=== PATIENT | male | born 1985 | race Caucasian/White ===

== ENCOUNTER 2017-07-20 10:51 | Emergency (ER) | payer OTHER ==
[~2017-07-20] VITALS: Ht 170.2 cm; Wt 59.0 kg
[2017-07-20 11:10] VITALS: BP 133/88; PULSE 75; RESP 16; TEMP 98.6; O2SAT 100
[2017-07-20 12:08] LABS: AUTOMATED NEUTROPHIL # 3.4 TH/MM3 (1.8-7.7); BASOPHIL % 0.8 % (0.0-2.0); EOSINOPHIL # 0.1 TH/MM3 (0-0.4); EOSINOPHIL % 1.3 % (0.0-4.0); HEMATOCRIT 36.9 % (39.0-51.0); HEMO FLAGS DIFF FINAL; LYMPH % 27.1 % (9.0-44.0); LYMPHOCYTE # 1.4 TH/MM3 (1.0-4.8); MEAN CELL VOLUME 89.3 FL (80.0-100.0); MEAN CORPUSCULAR HEMOGLOBIN 29.5 PG (27.0-34.0); MONO % 6.5 % (0.0-8.0); NEUT % 64.3 % (16.0-70.0); PLATELET COUNT 306 TH/MM3 (150-450); RED BLOOD COUNT 4.13 MIL/MM3 (4.50-5.90); RED CELL DISTRIBUTION WIDTH 13.8 % (11.6-17.2); WHITE BLOOD COUNT 5.3 TH/MM3 (4.0-11.0)
--- NOTE | 2017-07-20 12:11 | PD ---
HPI Chief Complaint: Psychiatric Symptoms Time Seen by Provider: 11:35 Travel History International Travel<30 days: No Contact w/Intl Traveler<30days: No Traveled to known affect area: No History of Present Illness HPI 32 year-old female presents to the emergency room under titus act initiated by police. Per report, patient was found wandering down the road barefoot in the rain with her 7-year-old son who was also barefoot. When the police approached her she could not give them appropriate answers. Her son was placed in protective custody and she was placed under Titus act. No suicidal or homicidal ideations. Patient denies hallucinations or delusions. Patient denies any chronic medical conditions or daily medications. Denies medical complaints at this time. States she smokes crystal meth, last used 2 days ago. Remote history of IV opiate use. Denies alcohol or cigarette use. PFSH Past Medical History Diminished Hearing: No Medical other: Yes (DRUG ADDICTION- METH ) Immunizations Current: Yes Tetanus Vaccination: Unknown Influenza Vaccination: No ?: Not LMP: last month : 3 Para: 2 Miscarriage: 0 : 1 Past Surgical History Surgical History: No Previous Surgery Social History Alcohol Use: No Tobacco Use: No Substance Use: Yes (meth last use more than 24 hours ago ) Review of Systems Except as stated in HPI: all other systems reviewed are Neg Physical Exam Narrative GENERAL: Well-nourished, well-developed female in no acute distress. Afebrile. Ambulatory. SKIN: Focused skin assessment warm/dry. HEAD: Normocephalic. EYES: No scleral icterus. No injection or drainage. NECK: Supple, trachea midline. No JVD or lymphadenopathy. CARDIOVASCULAR: Regular rate and rhythm without murmurs, gallops, or rubs. RESPIRATORY: Breath sounds equal bilaterally. No accessory muscle use. PSYCHIATRIC: No delusional thought processes. No hallucinations. Mildly tearful. Depressed mood. Normal affect. Data Data Last Documented VS Vital Signs Date Time Temp Pulse Resp B/P (MAP) Pulse Ox O2 Delivery O2 Flow Rate FiO2 07/20/17 11:10 98.6 75 16 133/88 (103) 100 Orders Orders Complete Blood Count With Diff (07/20/17 11:46) Basic Metabolic Panel (Bmp) (07/20/17 11:46) Ed Urine Pregnancytest Poc (07/20/17 11:46) Psych Screen (07/20/17 11:46) Drug Screen, Random Urine (07/20/17 11:46) Alcohol (Ethanol) (07/20/17 11:46) Diet Regular Basic (07/20/17 Lunch) Labs Laboratory Tests Test 07/20/17 11:10 07/20/17 11:45 White Blood Count 5.3 TH/MM3 Red Blood Count 4.13 MIL/MM3 Hemoglobin 12.2 GM/DL Hematocrit 36.9 % Mean Corpuscular Volume 89.3 FL Mean Corpuscular Hemoglobin 29.5 PG Mean Corpuscular Hemoglobin Concent 33.0 % Red Cell Distribution Width 13.8 % Platelet Count 306 TH/MM3 Mean Platelet Volume 8.3 FL Neutrophils (%) (Auto) 64.3 % Lymphocytes (%) (Auto) 27.1 % Monocytes (%) (Auto) 6.5 % Eosinophils (%) (Auto) 1.3 % Basophils (%) (Auto) 0.8 % Neutrophils # (Auto) 3.4 TH/MM3 Lymphocytes # (Auto) 1.4 TH/MM3 Monocytes # (Auto) 0.3 TH/MM3 Eosinophils # (Auto) 0.1 TH/MM3 Basophils # (Auto) 0.0 TH/MM3 CBC Comment DIFF FINAL Differential Comment Blood Urea Nitrogen 15 MG/DL Creatinine 0.76 MG/DL Random Glucose 94 MG/DL Calcium Level 8.8 MG/DL Sodium Level 139 MEQ/L Potassium Level 3.6 MEQ/L Chloride Level 104 MEQ/L Carbon Dioxide Level 26.8 MEQ/L Anion Gap 8 MEQ/L Estimat Glomerular Filtration Rate 120 ML/MIN Ethyl Alcohol Level 8 MG/DL Urine Opiates Screen NEG Urine Barbiturates Screen NEG Urine Amphetamines Screen POS Urine Benzodiazepines Screen NEG Urine Cocaine Screen NEG Urine Cannabinoids Screen NEG MDM Medical Decision Making Medical Screen Exam Complete: Yes Emergency Medical Condition: Yes Medical Record Reviewed: Yes Differential Diagnosis Depression, inappropriate Titus act, suicidal ideation, anxiety, drug use Narrative Course 32-year-old female presents to the emergency room under Titus act initiated by police department. Per report, patient was wandering down the road barefoot in the rain with her 7-year-old son who was also barefoot. Her son was taken into protective custody. Patient was reportedly incoherent and brought to the emergency room. In the emergency room she is cooperative and answering questions appropriately. Mildly decreased mood especially when speaking about her son. Denies suicidal or homicidal ideation. Resting comfortably. Denies medical complaints. Physical exam is unremarkable. Vital signs stable. CBC and BMP are unremarkable. Drug screen shows methamphetamine use. Minimal alcohol. Patient is medically cleared for psychiatric evaluation. Condition: Stable Karma Tran Jul 20, 2017 12:11
[2017-07-20 12:20] LABS: BICARBONATE 26.8 MEQ/L (21.0-32.0); POTASSIUM 3.6 MEQ/L (3.5-5.1)
--- NOTE | 2017-07-20 14:54 | PD ---
History of Present Illness Chief Complaint: Psychiatric Symptoms Time Seen by Provider: 14:30 Travel History International Travel<30 Days: No Contact w/Intl Traveler<30days: No Known affected area: No Legal Status Legal Status: Ariela Act History of Present Illness: 32-year-old female Ariela acted by law enforcement after being found walking in the rain with her 7-year-old son. Both individuals were barefoot. Patient could not provide law enforcement with appropriate answers to questions. Patient noted to be positive for amphetamines. She does have a history of using crystal meth and reports having done so in the last 2 days. Her 7-year- old son was taken into protective custody and the patient was Ariela acted here. At this time, the patient states she lives with her boyfriend in [place]. She states he does not have a phone and cannot call him. She would however like to go home. She denies any suicidal or homicidal ideation, plan or intent. She states the environmental health officer indicated to her that she could get her son back. PFSH Past Medical History Diminished Hearing: No Medical other: Yes (DRUG ADDICTION- METH ) Immunizations Current: Yes Tetanus Vaccination: Unknown Influenza Vaccination: No ?: Not LMP: last month : 3 Para: 2 Miscarriage: 0 : 1 Past Surgical History Surgical History: No Previous Surgery Psychiatric History Psychiatric History Hx Psychiatric Treatment: Denied History of Inpatient Treatment: No Guns or firearms in home: No Social History Hx Alcohol Use: No Hx Tobacco Use: No Hx Substance Use: Yes (meth last use more than 24 hours ago ) Hx of Substance Use Treatment: Yes Allergies-Medications (Allergen,Severity, Reaction): Coded Allergies: No Known Allergies (Unverified , 07/21/17) Per pt. Review of Systems Except as stated in HPI: all other systems reviewed are Neg Mental Status Examination Appearance: Appropriate, Disheveled Consciousness: Lethargic Orientation: Person, Place Motor Activity: Normal gait Speech: Hesitant, Slow Language: Adequate Fund of Knowledge: Adequate Attention and Concentration: Easily Distracted Memory: Unremarkable Mood: Sad Affect: Blunt Thought Process & Associations: Intact Thought Content: Appropriate Hallucination Type: None Delusion Type: None Suicidal Ideation: No Suicidal Plan: No Suicidal Intention: No Homicidal Ideation: No Homicidal Plan: No Homicidal Intention: No Insight: Adequate Judgment: Adequate MDM Medical Decision Making Medical Record Reviewed: Yes Assessment/Plan Patient interviewed at bedside, medical record reviewed and case discussed with nurse Souza. Nurse Libby wants to gather further information regarding the whereabouts of the patient's son. Patient continues to deny suicidal or homicidal ideation, plan or intent. She does appear to have slow mentation. She does continue to appear clinically intoxicated. Patient seen again on 2016. She is no longer intoxicated. She is calm, pleasant and cooperative. She is verbally owen for safety and she is competent to do so. She reports that she has family members who are willing to assist her. She understands that her son is in DCF custody. She is currently stating that she will stop using drugs. She was referred to [facility] by this physician. Orders Orders Complete Blood Count With Diff (07/20/17 11:46) Basic Metabolic Panel (Bmp) (07/20/17 11:46) Ed Urine Pregnancytest Poc (07/20/17 11:46) Psych Screen (07/20/17 11:46) Drug Screen, Random Urine (07/20/17 11:46) Alcohol (Ethanol) (07/20/17 11:46) Diet Regular Basic (07/20/17 Lunch) Results Vital Signs Date Time Temp Pulse Resp B/P (MAP) Pulse Ox O2 Delivery O2 Flow Rate FiO2 07/20/17 11:10 98.6 75 16 133/88 (103) 100 Laboratory Tests Test 07/20/17 11:10 07/20/17 11:45 White Blood Count 5.3 Red Blood Count 4.13 Hemoglobin 12.2 Hematocrit 36.9 Mean Corpuscular Volume 89.3 Mean Corpuscular Hemoglobin 29.5 Mean Corpuscular Hemoglobin Concent 33.0 Red Cell Distribution Width 13.8 Platelet Count 306 Mean Platelet Volume 8.3 Neutrophils (%) (Auto) 64.3 Lymphocytes (%) (Auto) 27.1 Monocytes (%) (Auto) 6.5 Eosinophils (%) (Auto) 1.3 Basophils (%) (Auto) 0.8 Neutrophils # (Auto) 3.4 Lymphocytes # (Auto) 1.4 Monocytes # (Auto) 0.3 Eosinophils # (Auto) 0.1 Basophils # (Auto) 0.0 CBC Comment DIFF FINAL Differential Comment Blood Urea Nitrogen 15 Creatinine 0.76 Random Glucose 94 Calcium Level 8.8 Sodium Level 139 Potassium Level 3.6 Chloride Level 104 Carbon Dioxide Level 26.8 Anion Gap 8 Estimat Glomerular Filtration Rate 120 Ethyl Alcohol Level 8 Urine Opiates Screen NEG Urine Barbiturates Screen NEG Urine Amphetamines Screen POS Urine Benzodiazepines Screen NEG Urine Cocaine Screen NEG Urine Cannabinoids Screen NEG Diagnosis Primary Impression: Amphetamine abuse Prescriptions No Active Prescriptions or Reported Meds Condition: Stable Fabian Ann MD Jul 20, 2017 14:54
[2017-07-20 17:50] VITALS: BP_SYST 101; BP_SYST 116; BP_DIAS 61; BP_DIAS 70; PULSE 76; PULSE 99; RESP 18; TEMP 98.3; O2SAT 100; O2SAT 99
[2017-07-21 06:44] VITALS: BP 115/56; PULSE 63; RESP 18; TEMP 99.3; O2SAT 100
[2017-07-21 16:27] VITALS: BP 97/53; PULSE 68; RESP 16
[2017-07-22 06:05] VITALS: BP 101/66; PULSE 69; O2SAT 100
[2017-07-22 10:58] VITALS: BP 97/55; PULSE 84; RESP 18; TEMP 98.4; O2SAT 100
[2017-07-22 14:19] VITALS: BP 97/55; TEMP 98.4
--- NOTE | 2017-07-22 14:45 | PD ---
Physical Exam Date Seen by Provider: Jul 22, 2017 Time Seen by Provider: 14:43 Data Data Last Documented VS Vital Signs Date Time Temp Pulse Resp B/P (MAP) Pulse Ox O2 Delivery O2 Flow Rate FiO2 07/22/17 14:19 98.4 84 18 97/55 (69) 100 07/22/17 10:58 Room Air Orders Orders Complete Blood Count With Diff (07/20/17 11:46) Basic Metabolic Panel (Bmp) (07/20/17 11:46) Ed Urine Pregnancytest Poc (07/20/17 11:46) Psych Screen (07/20/17 11:46) Drug Screen, Random Urine (07/20/17 11:46) Alcohol (Ethanol) (07/20/17 11:46) Diet Regular Basic (07/20/17 Lunch) Diet Regular Basic (07/21/17 Breakfast) Diet Regular Basic (07/21/17 Lunch) Diet Regular Basic (07/21/17 Dinner) Diet Regular Basic (07/22/17 Breakfast) Diet Regular Basic (07/22/17 Lunch) Ed Discharge Order (07/22/17 14:35) Labs Laboratory Tests Test 07/20/17 11:10 07/20/17 11:45 White Blood Count 5.3 TH/MM3 Red Blood Count 4.13 MIL/MM3 Hemoglobin 12.2 GM/DL Hematocrit 36.9 % Mean Corpuscular Volume 89.3 FL Mean Corpuscular Hemoglobin 29.5 PG Mean Corpuscular Hemoglobin Concent 33.0 % Red Cell Distribution Width 13.8 % Platelet Count 306 TH/MM3 Mean Platelet Volume 8.3 FL Neutrophils (%) (Auto) 64.3 % Lymphocytes (%) (Auto) 27.1 % Monocytes (%) (Auto) 6.5 % Eosinophils (%) (Auto) 1.3 % Basophils (%) (Auto) 0.8 % Neutrophils # (Auto) 3.4 TH/MM3 Lymphocytes # (Auto) 1.4 TH/MM3 Monocytes # (Auto) 0.3 TH/MM3 Eosinophils # (Auto) 0.1 TH/MM3 Basophils # (Auto) 0.0 TH/MM3 CBC Comment DIFF FINAL Differential Comment Blood Urea Nitrogen 15 MG/DL Creatinine 0.76 MG/DL Random Glucose 94 MG/DL Calcium Level 8.8 MG/DL Sodium Level 139 MEQ/L Potassium Level 3.6 MEQ/L Chloride Level 104 MEQ/L Carbon Dioxide Level 26.8 MEQ/L Anion Gap 8 MEQ/L Estimat Glomerular Filtration Rate 120 ML/MIN Ethyl Alcohol Level 8 MG/DL Urine Opiates Screen NEG Urine Barbiturates Screen NEG Urine Amphetamines Screen POS Urine Benzodiazepines Screen NEG Urine Cocaine Screen NEG Urine Cannabinoids Screen NEG MDM Medical Record Reviewed: Yes Supervised Visit with JAGJIT: No Narrative Course 32-year-old female presents to the emergency room under Titus act initiated by police after she was found wandering the streets in the rain, barefoot with her 7-year-old son. Patient could not answer questions so she was placed into protective custody and her son was placed in protective custody. She had admitted to recent methamphetamine use. She denies suicidal or homicidal ideation at this time. She was seen by the psychiatrist in Titus act was lifted , she is not felt to be a threat to herself or others. States she will do whatever it takes to get her son back. Patient is stable for outpatient follow- up and drug detoxification. Told to return for worsening symptoms. She understands and agrees to plan. Diagnosis Primary Impression: Amphetamine abuse Patient Instructions: General Instructions, Methamphetamine Abuse (ED) Departure Forms: Tests/Procedures Scripts No Active Prescriptions or Reported Meds Disposition: 01 DISCHARGE HOME Condition: Stable Karma Tran Jul 22, 2017 14:45
== END 2017-07-22 15:33 | disposition home or self-care (01) ==
LOC: NEPD 10:51 → NEPJ 07-22 15:33
DX: F15.10 Other stimulant abuse, uncomplicated (principal)
CPT/HCPCS: 80048; 80307; 84703; 85025; 99284

== ENCOUNTER 2017-09-03 17:56 | Emergency (ER) | payer OTHER ==
[~2017-09-03] VITALS: Ht 170.2 cm; Wt 56.8 kg
[2017-09-03 19:47] LABS: BACTERIA, URINE MOD /hpf; BILIRUBIN, URINE NEG (NEG); BLOOD, URINE MOD (NEG); GLUCOSE,URINE NEG (NEG); KETONE, URINE NEG (NEG); NITRITE,URINE NEG (NEG); PH, URINE 6.5 (5.0-8.5); SQUAMOUS EPITHELIAL CELL URINE 3 /hpf (0-5); URINE COLOR LIGHT-YELLOW (YELLW/STRAW); URINE LEUKOCYTE ESTERASE NEG (NEG)
[2017-09-04] MEDS ORDERED: BACT800T5 PO (00:18)
--- NOTE | 2017-09-04 00:19 | PD ---
HPI Chief Complaint: Abdominal Pain Time Seen by Provider: 22:59 Travel History International Travel<30 days: No Contact w/Intl Traveler<30days: No Traveled to known affect area: No History of Present Illness HPI Patient is a 32-year-old female who is sleeping in the stretcher. Triage note states she is here for urinary symptoms, however when woken up, she says she has no complaints. She does admit to using drugs in the past few days and not sleeping for 3 days. She has history of cocaine and amphetamine abuse. When awoken, she denies any urinary symptoms. She says she does not know why she is here. PFSH Past Medical History Depression: Yes Diminished Hearing: No Immunizations Current: Yes ?: Not : 3 Para: 2 Miscarriage: 0 : 1 Past Surgical History Surgical History: No Previous Surgery Social History Alcohol Use: No Tobacco Use: No Substance Use: Yes (injects/smokes Meth; last time "3 days ago, IV") Allergies-Medications (Allergen,Severity, Reaction): Coded Allergies: No Known Allergies (Unverified , 09/03/17) Per pt. Reported Meds & Prescriptions Reported Meds & Active Scripts Active No Active Prescriptions or Reported Medications Review of Systems Except as stated in HPI: all other systems reviewed are Neg General / Constitutional: No: Fever, Chills HENT: No: Headaches, Lightheadedness Cardiovascular: No: Chest Pain or Discomfort Respiratory: No: Shortness of Breath Gastrointestinal: No: Nausea, Vomiting, Abdominal Pain Genitourinary: No: Dysuria Musculoskeletal: No: Myalgias, Edema Skin: No Rash, No Change in Pigmentation Physical Exam Narrative GENERAL: Sleeping but awakens easily. SKIN: Focused skin assessment warm/dry. No signs of infection. HEAD: Atraumatic. Normocephalic. EYES: Pupils equal and round. No scleral icterus. ENT: Mucous membranes pink and moist. NECK: Trachea midline. No JVD. CARDIOVASCULAR: Regular rate and rhythm. No murmur appreciated. RESPIRATORY: No accessory muscle use. Clear to auscultation. Breath sounds equal bilaterally. GASTROINTESTINAL: Abdomen soft, non-tender, nondistended. MUSCULOSKELETAL: No obvious deformities. No clubbing. No cyanosis. No edema. NEUROLOGICAL: Awake and alert. No obvious cranial nerve deficits. Motor grossly within normal limits. Normal speech. PSYCHIATRIC: Appropriate mood and affect; insight and judgment normal. Data Data Orders Orders Ed Urine Pregnancytest Poc (09/03/17 18:22) Urinalysis - C+S If Indicated (09/03/17 18:22) Urine Culture (09/03/17 18:50) Labs Laboratory Tests Test 09/03/17 18:50 Urine Color LIGHT-YELLOW Urine Turbidity CLEAR Urine pH 6.5 Urine Specific [place] 1.010 Urine Protein NEG mg/dL Urine Glucose (UA) NEG mg/dL Urine Ketones NEG mg/dL Urine Occult Blood MOD Urine Nitrite NEG Urine Bilirubin NEG Urine Urobilinogen LESS THAN 2.0 MG/DL Urine Leukocyte Esterase NEG Urine RBC 149 /hpf Urine WBC 1 /hpf Urine Squamous Epithelial Cells 3 /hpf Urine Bacteria MOD /hpf Urine Yeast (Budding) RARE Microscopic Urinalysis Comment CULTURE INDICATED MDM Medical Decision Making Medical Screen Exam Complete: Yes Emergency Medical Condition: Yes Medical Record Reviewed: Yes Differential Diagnosis Intoxication versus withdrawal versus UTI Narrative Course Patient is a 32-year-old female who comes in originally complaining of abdominal pain. She is sleeping soundly in the emergency department. When awoken, she says that she was using drugs for the past 3 days and has not been sleeping. Currently she has no complaints. Urinalysis was performed and shows evidence of UTI. She'll be discharged with prescription for Bactrim. Advised to quit using drugs. Advised follow-up with her primary doctor. Advised to return to the ED as needed for any worsening symptoms. Diagnosis Primary Impression: UTI (urinary tract infection) Qualified Codes: N30.00 - Acute cystitis without hematuria Patient Instructions: General Instructions, Urinary Tract Infection in Women ( ED) Additional Instructions: Take all of your antibiotic. Stop using drugs. Return to the ED as needed for any worsening symptoms. Scripts Sulfamethoxazole-Trimethoprim (Bactrim DS) 800-160 Mg Tab 1 TAB PO BID for Infection, #6 TAB 0 Refills Prov: Geri Byrd MD 09/04/17 Disposition: 01 DISCHARGE HOME Condition: Stable Geri Byrd MD Sep 04, 2017 00:18
[2017-09-04 00:22] VITALS: BP 120/60; PULSE 88; RESP 20; TEMP 98.2; O2SAT 98
== END 2017-09-04 00:45 | disposition home or self-care (01) ==
LOC: EDSEX 17:56 → NEPD 17:56
DX: N30.00 Acute cystitis without hematuria (principal); B96.89 Other specified bacterial agents as the cause of diseases classified elsewhere; F14.10 Cocaine abuse, uncomplicated; F15.10 Other stimulant abuse, uncomplicated
CPT/HCPCS: 81001; 84703; 87086; 99283

== ENCOUNTER 2017-12-20 19:26 | Inpatient (IN) | payer OTHER ==
[~2017-12-20] VITALS: Ht 157.5 cm; Wt 69.0 kg
[~2017-12-20 19:26] MED LIST: BACT800T5 PO
[2017-12-20 20:24] VITALS: BP 135/83; PULSE 81; RESP 16; TEMP 99.4; O2SAT 100
--- NOTE | 2017-12-20 22:09 | PD ---
HPI Chief Complaint: Psychiatric Symptoms Time Seen by Provider: 22:08 Travel History International Travel<30 days: No Contact w/Intl Traveler<30days: No Traveled to known affect area: No History of Present Illness HPI 32-year-old female with history of polysubstance abuse presents to emergency department for psychiatric evaluation. Patient states that she was sober but had relapsed. She states she is very upset with herself and having very dark thoughts. She is depressed. Thinking about hurting herself. This is been worsening over the last week. She denies any medical needs she has no other symptoms to report. PFSH Past Medical History Depression: Yes Diminished Hearing: No Immunizations Current: Yes Tetanus Vaccination: Unknown Influenza Vaccination: No ?: Unknown : 3 Para: 2 Miscarriage: 0 : 1 Social History Alcohol Use: No Tobacco Use: No Substance Use: Yes (injects/smokes Meth; last time "3 days ago, IV") Allergies-Medications (Allergen,Severity, Reaction): Coded Allergies: No Known Allergies (Unverified , 12/20/17) Per pt. Reported Meds & Prescriptions Reported Meds & Active Scripts Active Bactrim DS (Sulfamethoxazole-Trimethoprim) 800-160 Mg Tab 1 Tab PO BID Review of Systems Except as stated in HPI: all other systems reviewed are Neg Physical Exam Narrative GENERAL: Well-nourished female patient, no acute distress. SKIN: Focused skin assessment warm/dry. HEAD: Atraumatic. Normocephalic. EYES: Pupils equal and round. No scleral icterus. No injection or drainage. ENT: No nasal bleeding or discharge. Mucous membranes pink and moist. NECK: Trachea midline. No JVD. CARDIOVASCULAR: Regular rate and rhythm. No murmur appreciated. RESPIRATORY: No accessory muscle use. Clear to auscultation. Breath sounds equal bilaterally. GASTROINTESTINAL: Abdomen soft, non-tender, nondistended. Hepatic and splenic margins not palpable. MUSCULOSKELETAL: No obvious deformities. No clubbing. No cyanosis. No edema. NEUROLOGICAL: Awake and alert. No obvious cranial nerve deficits. Motor grossly within normal limits. Normal speech. Data Data Last Documented VS Vital Signs Date Time Temp Pulse Resp B/P (MAP) Pulse Ox O2 Delivery O2 Flow Rate FiO2 12/20/17 20:24 99.4 81 16 135/83 (100) 100 Orders Orders Complete Blood Count With Diff (12/20/17 22:09) Thyroid Stimulating Hormone (12/20/17 22:09) Basic Metabolic Panel (Bmp) (12/20/17 22:09) Ed Urine Pregnancytest Poc (12/20/17 22:09) Psych Screen (12/20/17 22:09) Drug Screen, Random Urine (12/20/17 22:09) Alcohol (Ethanol) (12/20/17 22:09) Lorazepam Inj (Ativan Inj) (12/21/17 00:56) Labs Laboratory Tests Test 12/20/17 22:22 White Blood Count 9.4 TH/MM3 Red Blood Count 4.02 MIL/MM3 Hemoglobin 12.5 GM/DL Hematocrit 37.0 % Mean Corpuscular Volume 92.0 FL Mean Corpuscular Hemoglobin 31.1 PG Mean Corpuscular Hemoglobin Concent 33.9 % Red Cell Distribution Width 14.1 % Platelet Count 290 TH/MM3 Mean Platelet Volume 8.5 FL Neutrophils (%) (Auto) 72.8 % Lymphocytes (%) (Auto) 17.4 % Monocytes (%) (Auto) 8.6 % Eosinophils (%) (Auto) 0.8 % Basophils (%) (Auto) 0.4 % Neutrophils # (Auto) 6.8 TH/MM3 Lymphocytes # (Auto) 1.6 TH/MM3 Monocytes # (Auto) 0.8 TH/MM3 Eosinophils # (Auto) 0.1 TH/MM3 Basophils # (Auto) 0.0 TH/MM3 CBC Comment DIFF FINAL Differential Comment Blood Urea Nitrogen 8 MG/DL Creatinine 0.73 MG/DL Random Glucose 91 MG/DL Calcium Level 8.7 MG/DL Sodium Level 137 MEQ/L Potassium Level 3.7 MEQ/L Chloride Level 102 MEQ/L Carbon Dioxide Level 29.2 MEQ/L Anion Gap 6 MEQ/L Estimat Glomerular Filtration Rate 93 ML/MIN Thyroid Stimulating Hormone 3rd Gen 0.761 uIU/ML Urine Opiates Screen NEG Urine Barbiturates Screen NEG Urine Amphetamines Screen NEG Urine Benzodiazepines Screen NEG Urine Cocaine Screen NEG Urine Cannabinoids Screen NEG Ethyl Alcohol Level LESS THAN 3 MG/DL MDM Medical Decision Making Medical Screen Exam Complete: Yes Emergency Medical Condition: Yes Medical Record Reviewed: Yes Differential Diagnosis Mood disorder versus personality disorder versus adjustment reaction disorder versus substance abuse Narrative Course 32-year-old female presents emergency department for psychiatric evaluation. Patient appears without distress. Vital signs are stable. Lab work is reviewed and without acute concern. Patient is medically cleared to undergo psychiatric screening for further evaluation and disposition. Mental health screening discussed with the patient. Psychiatric screen ordered. Laboratory Tests Test 12/20/17 22:22 White Blood Count 9.4 TH/MM3 Red Blood Count 4.02 MIL/MM3 Hemoglobin 12.5 GM/DL Hematocrit 37.0 % Mean Corpuscular Volume 92.0 FL Mean Corpuscular Hemoglobin 31.1 PG Mean Corpuscular Hemoglobin Concent 33.9 % Red Cell Distribution Width 14.1 % Platelet Count 290 TH/MM3 Mean Platelet Volume 8.5 FL Neutrophils (%) (Auto) 72.8 % Lymphocytes (%) (Auto) 17.4 % Monocytes (%) (Auto) 8.6 % Eosinophils (%) (Auto) 0.8 % Basophils (%) (Auto) 0.4 % Neutrophils # (Auto) 6.8 TH/MM3 Lymphocytes # (Auto) 1.6 TH/MM3 Monocytes # (Auto) 0.8 TH/MM3 Eosinophils # (Auto) 0.1 TH/MM3 Basophils # (Auto) 0.0 TH/MM3 CBC Comment DIFF FINAL Differential Comment Blood Urea Nitrogen 8 MG/DL Creatinine 0.73 MG/DL Random Glucose 91 MG/DL Calcium Level 8.7 MG/DL Sodium Level 137 MEQ/L Potassium Level 3.7 MEQ/L Chloride Level 102 MEQ/L Carbon Dioxide Level 29.2 MEQ/L Anion Gap 6 MEQ/L Estimat Glomerular Filtration Rate 93 ML/MIN Thyroid Stimulating Hormone 3rd Gen 0.761 uIU/ML Urine Opiates Screen NEG Urine Barbiturates Screen NEG Urine Amphetamines Screen NEG Urine Benzodiazepines Screen NEG Urine Cocaine Screen NEG Urine Cannabinoids Screen NEG Ethyl Alcohol Level LESS THAN 3 MG/DL Diagnosis Primary Impression: Adjustment reaction Qualified Codes: F43.23 - Adjustment disorder with mixed anxiety and depressed mood Condition: Stable Joanna Mccarthy Dec 20, 2017 22:09
[2017-12-20 22:32] LABS: AUTOMATED NEUTROPHIL # 6.8 TH/MM3 (1.8-7.7); BASOPHIL % 0.4 % (0.0-2.0); EOSINOPHIL # 0.1 TH/MM3 (0-0.4); EOSINOPHIL % 0.8 % (0.0-4.0); HEMOGLOBIN 12.5 GM/DL (11.6-15.3); LYMPH % 17.4 % (9.0-44.0); LYMPHOCYTE # 1.6 TH/MM3 (1.0-4.8); MEAN CORPUSCULAR HEMOGLOBIN 31.1 PG (27.0-34.0); MEAN CORPUSCULAR HGB CONC 33.9 % (32.0-36.0); MEAN PLATELET VOLUME 8.5 FL (7.0-11.0); MONO % 8.6 % (0.0-8.0); MONOCYTE # 0.8 TH/MM3 (0-0.9); NEUT % 72.8 % (16.0-70.0); PLATELET COUNT 290 TH/MM3 (150-450); RED BLOOD COUNT 4.02 MIL/MM3 (4.00-5.30); RED CELL DISTRIBUTION WIDTH 14.1 % (11.6-17.2); WHITE BLOOD COUNT 9.4 TH/MM3 (4.0-11.0)
[2017-12-20 22:55] LABS: BICARBONATE 29.2 MEQ/L (21.0-32.0); CALCIUM 8.7 MG/DL (8.5-10.1); CHLORIDE 102 MEQ/L (98-107); CREATININE 0.73 MG/DL (0.50-1.00); GLOMERULAR FILTRATION RATE 93 ML/MIN (>89); GLUCOSE,RANDOM 91 MG/DL (74-106); SODIUM (NA) 137 MEQ/L (136-145)
[2017-12-20 23:02] LABS: BLOOD UREA NITROGEN 8 MG/DL (7-18)
[2017-12-21] MEDS ORDERED: LORazepam 2 MG/ML VIAL ONE (00:56)
[2017-12-21 06:24] VITALS: BP 146/68; PULSE 70; RESP 14; O2SAT 99
[2017-12-21] MEDS ORDERED: BENZTROPINE MESYLATE 2 MG/2 ML VIAL IM PRN (08:30)
[2017-12-21] MEDS ORDERED: ACETAMINOPHEN 325 MG TAB PO PRN (08:30)
[2017-12-21] MEDS ORDERED: BENZTROPINE MESYLATE 1 MG TAB PO PRN (08:30)
[2017-12-21] MEDS ORDERED: MAGNESIUM HYDROXIDE SUSP 30 ML CUP PO PRN (08:30)
[2017-12-21] MEDS ORDERED: ALUMINUM/MAGNESIUM/SIMETH 30 ML CUP PO PRN (08:30)
[2017-12-21] MEDS ORDERED: NICOTINE 21 MG/24 HR PATCH T-DERMAL PRN (08:30)
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
[2017-12-21] MEDS: FLUoxetine HCL 10 MG CAP PO SCH (10:49)
[2017-12-21 11:00] VITALS: BP 115/68; PULSE 88; RESP 16; TEMP 98.2; O2SAT 98
[2017-12-21] MEDS: traZODone HCL 50 MG TAB PO PRN (21:48)
[2017-12-22 05:53] VITALS: BP 105/58; PULSE 70; RESP 15; TEMP 98.1; O2SAT 98
[2017-12-22] MEDS: FLUoxetine HCL 10 MG CAP PO SCH (09:09)
[2017-12-22 09:22] LABS: CHOLESTEROL 169 MG/DL (120-200); TRIGLYCERIDES 133 MG/DL (42-150)
[2017-12-22 09:24] LABS: CHOLESTEROL/ HDL RATIO 2.93 RATIO; HDL CHOLESTEROL 57.6 MG/DL (40.0-60.0); LDL CHOLESTEROL 85 MG/DL (0-99)
--- NOTE | 2017-12-22 10:24 | HHI.PYPN ---
Subjective Remarks Reviewed electronic medical record and discussed case with staff. Follow-up was performed in patient's room with nurse present. Patient found sleeping soundly in her bed. She woke to verbal stimuli. She is alert and oriented 4. Patient reports that she slept well has a good appetite. She denies suicidal ideation but states "I have been sleeping all morning". She denies homicidal ideation, visual or auditory hallucinations. I can elicit no delusional material. She denies any side effects from medication and there is no psychomotor abnormality noted. She denies physical complaints at this time. Mental Status Examination Appearance: Appropriate Consciousness: Alert Orientation: x4 Motor Activity: Other (Sitting on bed) Speech: Unremarkable Language: Adequate Fund of Knowledge: Adequate Attention and Concentration: Adequate Memory: Unremarkable Mood: Appropriate Affect: Appropriate Thought Process & Associations: Intact Thought Content: Appropriate Hallucination Type: None Delusion Type: None Suicidal Ideation: No (Denies, but states "I have been sleeping".) Suicidal Plan: No Suicidal Intention: No Homicidal Ideation: No Homicidal Plan: No Homicidal Intention: No Insight: Fair Judgment: Impulsive Results Labs Test 12/22/17 07:34 Triglycerides Level 133 MG/DL Cholesterol Level 169 MG/DL LDL Cholesterol 85 MG/DL HDL Cholesterol 57.6 MG/DL Cholesterol/HDL Ratio 2.93 RATIO Vitals/IOs Vital Signs Date Time Temp Pulse Resp B/P (MAP) Pulse Ox O2 Delivery O2 Flow Rate FiO2 12/22/17 05:53 98.1 70 15 105/58 (74) 98 12/21/17 06:24 Room Air Assessment & Plan Problem List: (1) Adjustment reaction ICD Codes: F43.20 - Adjustment disorder, unspecified Status: Acute Assessment & Plan Estimated LOS: Patient continues to improve. Will continue with medication. Counselor working on possible placement. Justification for Cont. Inpt. Moving this patient to a lower level of care would likely result in decompensation. Safe discharge plan being worked upon. Problem Qualifiers (1) Adjustment reaction: Qualified Codes: F43.23 - Adjustment disorder with mixed anxiety and depressed mood Ute Easley Dec 22, 2017 10:24
[2017-12-22 13:16] LABS: HEMOGLOBIN A1C 5.5 % (4.3-6.0)
[2017-12-22 17:38] VITALS: BP 110/74; PULSE 82; RESP 16; TEMP 97.9; O2SAT 98
[2017-12-22] MEDS: traZODone HCL 50 MG TAB PO PRN (21:57)
[2017-12-23 05:43] VITALS: BP 96/54; PULSE 70; RESP 16; TEMP 98.2; O2SAT 97
[2017-12-23] MEDS: FLUoxetine HCL 10 MG CAP PO SCH (09:09)
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
[2017-12-23] MEDS: hydrOXYzine HCL 50 MG TAB PO PRN ×2 (15:03→22:22)
[2017-12-23 18:22] VITALS: BP 107/59; PULSE 72; RESP 17; TEMP 97.8; O2SAT 99
[2017-12-23] MEDS: traZODone HCL 50 MG TAB PO PRN (22:18)
[2017-12-24 06:24] VITALS: BP 104/60; PULSE 67; RESP 16; TEMP 98; O2SAT 98
--- NOTE | 2017-12-24 08:48 | HHI.PYPN ---
Subjective Remarks Patient seen and examined with nurse. Chart reviewed. Case discussed with nursing staff. On my examination today, patient reports that mood remains somewhat depressed but is improving. She continues to complain of low sense of self-worth. No SI/HI presently. We discuss traumatic nightmares and discuss possibility of addition of an agent (e.g. Prazosin) for the management of this issue. After a discussion of pharmacotherapeutic options, we settle on titration of Prozac at this time. Denies side effects from medications. No physical complaints. Review of Systems Except as stated in HPI: all other systems reviewed are Neg Mental Status Examination Appearance: Appropriate Consciousness: Alert Orientation: x4 Motor Activity: Other (No motor abnormalities noted) Speech: Unremarkable Language: Adequate Fund of Knowledge: Adequate Attention and Concentration: Adequate Memory: Unremarkable Mood: Appropriate (Mood is improving) Affect: Appropriate Thought Process & Associations: Intact Thought Content: Appropriate Hallucination Type: None Delusion Type: None Suicidal Ideation: No Suicidal Plan: No Suicidal Intention: No Homicidal Ideation: No Homicidal Plan: No Homicidal Intention: No Insight: Adequate Judgment: Adequate Results Labs Labs reviewed. No new labs. Vitals/IOs Vital Signs Date Time Temp Pulse Resp B/P (MAP) Pulse Ox O2 Delivery O2 Flow Rate FiO2 12/24/17 06:24 98.0 67 16 104/60 (75) 98 12/21/17 06:24 Room Air Intake and Output 12/24/17 12/24/17 12/25/17 08:00 16:00 00:00 Intake Total 240 ml Balance 240 ml Assessment & Plan Problem List: (1) Adjustment reaction ICD Codes: F43.20 - Adjustment disorder, unspecified Status: Acute Assessment & Plan Titrate Prozac to 20 mg daily. Continue to monitor on inpatient unit. Continue other medications and care as ordered. Justification for Cont. Inpt. Medication changes. Discharge Planning Patient is improving. Possible discharge in the next 1-2 days. Request HC Surrog/Guard Advoc?: No Problem Qualifiers (1) Adjustment reaction: Qualified Codes: F43.21 - Adjustment disorder with depressed mood Jonathan Arce MD Dec 24, 2017 08:48
[2017-12-24] MEDS: FLUoxetine HCL 10 MG CAP PO SCH (09:59)
[2017-12-24] MEDS: hydrOXYzine HCL 50 MG TAB PO PRN ×2 (15:21→21:22)
[2017-12-24 16:46] VITALS: BP 115/55; PULSE 98; RESP 18; TEMP 98.2; O2SAT 98
[2017-12-24] MEDS: traZODone HCL 50 MG TAB PO PRN (21:22)
[2017-12-25 06:00] VITALS: BP 95/51; PULSE 73; RESP 16; TEMP 98.1; O2SAT 97
[2017-12-25] MEDS: FLUoxetine HCL 10 MG CAP PO SCH (08:53)
[2017-12-25] MEDS ORDERED: TRAZ50TA12 PO (09:58)
[2017-12-25] MEDS ORDERED: PROZ20CA11 PO (09:58)
[2017-12-25] MEDS ORDERED: HYDR50TA94 PO (09:58)
--- NOTE | 2017-12-25 09:58 | HHI.DS ---
Psychiatry Discharge Summary Inpatient Psychiatric care?: Yes Advance Directive: No Reason Not Provided: NOT NEEDED Mental Health AdvanceDirective: No Health Care Proxy: No Admission Admission Date Dec 21, 2017 at 08:20 Admission Diagnosis: (1) Adjustment disorder with depressed mood ICD Code: F43.21 - Adjustment disorder with depressed mood (2) History of substance use disorder ICD Code: Z87.898 - Personal history of other specified conditions Brief History Ms. Bailon is a 32-year-old female with a reported history of substance use issues who presents on a voluntary basis requesting psychiatric evaluation. She told the ED provider that she was "very upset with herself and having very dark thoughts". Reviewing the electronic medical record, I note that the patient was seen in consultation by Dr. Ann in July 2017 with a diagnosis at that time of amphetamine abuse. The patient is seen and examined. Chart reviewed. Case discussed with staff in the ED. On my examination today, the patient reports that she has been feeling depressed for several months. She also has been feeling somewhat anxious. She says that these symptoms are related at least in part to difficulties with her son being under the care of DCF. She endorses some hopeless and worthless feelings. No sleep or appetite disturbance. Some focus/concentration difficulties. No hypomanic or manic symptoms presently nor can I elicit any history of same. She denies any audio or visual hallucinations. I can elicit no delusional beliefs. She endorses some vague suicidal ideation and says she was beginning to think that "dying is easier." She says that when she began contemplating suicide plans, she decided to come into the hospital. She does presently contract for safety on the inpatient unit. She denies any homicidal ideation. Remainder of the psychiatric ROS is negative. The patient has no acute physical complaints. Tobacco Use In Past 30 Days: No Tobacco Past 30 Days Alcohol Use: Never Hospital Course Patient was admitted to a locked, inpatient psychiatric unit. Appropriate precautions were in place throughout patient's hospital stay. Patient was seen and examined on the unit by psychiatry and also visited by counselor. Psychotropic medications were adjusted. Patient tolerated medication changes well without side effects. Patient had improvement in presenting psychiatric symptomatology during the course of her hospital stay. There was no evidence of any suicidality or homicidality on the inpatient unit. There was no evidence of self-care deficit. The patient remained in behavioral control and was compliant with medications. On the day of discharge: Patient seen and examined with nurse. Chart reviewed. Case discussed with nursing staff. No behavioral issues overnight. Case discussed in treatment team. On my examination today, the patient is requesting discharge from the inpatient psychiatric unit today so that she might enter into a chemical dependency treatment program suggested to her by the counselor. She denies any suicidal or homicidal ideation, intent or plan on direct questioning and contracts for safety. She reports that her mood is "good" and she endorses having positive thoughts. I can elicit no depressive or hypomanic/manic symptoms. She denies any nightmares overnight and slept fairly well. She denies any audiovisual hallucinations. I can elicit no delusional beliefs. There is no evidence of impairment in reality construction. She denies any side effects from medications. No physical complaints. Suicide and violence risk assessment on day of discharge both suggest lower imminent risk from mental illness, and the patient's level of function is adequate for outpatient care. Patient has maximized benefit from this inpatient psychiatric hospital stay. She does not meet criteria for involuntary psychiatric hospitalization and is requesting discharge from the inpatient psychiatric unit today. Patient will be discharged today with psychiatric follow-up as arranged by counselor. Patient is also to follow up with primary care. I have supported the patient in her desire for sobriety. I have counseled the patient regarding warning signs for need to return to the psychiatric emergency room as part of a general safety plan. Results Blood Pressure 95 / 51 Vital Signs Date Time Temp Pulse Resp B/P (MAP) Pulse Ox O2 Delivery O2 Flow Rate FiO2 12/25/17 06:00 98.1 73 16 95/51 (66) 97 Laboratory Results Test 12/22/17 07:34 Cholesterol Level 169 MG/DL (120-200) HDL Cholesterol 57.6 MG/DL (40.0-60.0) Hemoglobin A1c 5.5 % (4.3-6.0) LDL Cholesterol 85 MG/DL (0-99) Triglycerides Level 133 MG/DL (42-150) Summary of Procedures None done Imaging None done Pending results at discharge: No Medications # of Antipsychotic meds at D/C: 0 Approp Antipsych med options 1 - Minimum of three failed multiple trials of monotherapy. 2 - Documented plan to taper to monotherapy due to previous use of multiple meds OR cross-taper in progress at D/C. 3 - Documentation of augmentation of Clozapine. 4 - Justification other than those listed in allowable values 1-3, document here : Discharge Discharge Date: Dec 25, 2017 Discharge Diagnosis: (1) Adjustment disorder with depressed mood Diagnosis: Principal (resolved) ICD Code: F43.21 - Adjustment disorder with depressed mood (2) History of substance use disorder Diagnosis: Secondary ICD Code: Z87.898 - Personal history of other specified conditions Pt Condition on Discharge: Stable Discharge Disposition: Discharge Home Discharge Instructions Diet Instructions: As Tolerated, No Restrictions Activities you can perform: Weight Bearing as Ward Scheduled Appointment: As per counselors notes New Medications: Fluoxetine (Prozac) 20 Mg Cap 20 MG PO DAILY for Mental Health for 15 Days, #15 CAP 1 Refill Hydroxyzine HCl (Hydroxyzine HCl) 50 Mg Tab 50 MG PO Q6H PRN for ANXIETY, #15 TAB 1 Refill Trazodone (Trazodone) 50 Mg Tab 50 MG PO HS PRN for INSOMNIA for 15 Days, TAB 1 Refill Discontinued Medications: Sulfamethoxazole-Trimethoprim (Bactrim DS) 800-160 Mg Tab 1 TAB PO BID for Infection, #6 TAB 0 Refills Discharge Time <= 30 minutes Mental Status Examination Appearance: Appropriate Consciousness: Alert Orientation: x4 Motor Activity: Other (No abnormal motor movements noted) Speech: Unremarkable Language: Adequate Fund of Knowledge: Adequate Attention and Concentration: Adequate Memory: Unremarkable Mood: Appropriate, Good Affect: Appropriate, Euthymic Thought Process & Associations: Intact, Logical, Goal directed, Linear Thought Content: Appropriate Hallucination Type: None Delusion Type: None Suicidal Ideation: No Suicidal Plan: No Suicidal Intention: No Homicidal Ideation: No Homicidal Plan: No Homicidal Intention: No Insight: Adequate Judgment: Adequate Discharge/Advance Care Plan Health Problems: (1) Adjustment reaction Goals to promote your health * To prevent worsening of your condition and complications * To maintain your health at the optimal level Directions to meet your goals Take your medications as prescribed Follow your dietary instruction Follow activity as directed Keep your appointments as scheduled Take your immunizations and boosters as scheduled If your symptoms worsen call your PCP, if no PCP go to Urgent Care Center or Emergency Room For 09/04 questions related to your inpatient stay or results of tests pending at discharge, please contact Dr. Jonathan Arce at Smoking is Dangerous to Your Health. Avoid second hand smoking Jonathan Arce MD Dec 25, 2017 09:58
== END 2017-12-25 13:40 | disposition home or self-care (01) | DRG 881 ==
LOC: NEPD 19:26 → NEDA 12-21 08:20 → H260 12-21 10:20
PROVIDERS: ADMIT Psychiatry & Neurology Psychiatry; ATTEND Psychiatry & Neurology Psychiatry
DX: F43.21 Adjustment disorder with depressed mood (principal); Z59.0 Homelessness
CPT/HCPCS: 80048; 80061; 80307; 83036; 84443; 84703; 85025; 99285; J2060